=== PATIENT | female | born 1935 | race Caucasian/White ===

== ENCOUNTER 2019-10-26 18:14 | Emergency (ER) | payer MEDICARE ==
[~2019-10-26] VITALS: Ht 162.6 cm; Wt 100.2 kg
[2019-10-26 18:18] VITALS: Ht 162.6 cm; Wt 100.2 kg
[2019-10-26] MEDS ORDERED: GABAPENTIN100 MG (18:19)
[2019-10-26] MEDS ORDERED: GLUCOPHAGE500 MG (18:19)
[2019-10-26] MEDS ORDERED: LIPITOR40 MG (18:20)
[2019-10-26 18:40] LABS: BASOPHILS 0.5 % (0-2); EOSINOPHILS 0.4 % (0-7); HEMATOCRIT 35.5 % (36.0-48.0); HEMOGLOBIN 11.5 g/dL (12-16); IMMATURE GRANULOCYTES 0.4 % (0-5); LYMPHOCYTES 18.4 % (15-50); MCH 26.2 pg (26.0-34.0); MCHC 32.4 g/dL (31.0-37.0); MCV 80.9 fL (80.0-100.0); MEAN PLATELET VOLUME 11.3 fL (7.4-10.4); MONOCYTES 11.9 % (2-11); NEUTROPHILS 68.4 % (40-80); PLATELET COUNT 273 10x3/uL (130-400); RBC 4.39 10x6/uL (4.00-5.40); RDW 14.6 % (11.5-14.5); WBC 11.2 10x3/uL (4.8-10.8)
[2019-10-26 19:06] LABS: ANION GAP 15.3 mmol/L (8-16); CALCIUM 10.1 mg/dL (8.5-10.1); CARBON DIOXIDE 26.3 mmol/L (21.0-32.0); CREATININE - SERUM 1.4 mg/dL (0.6-1.3); POTASSIUM - SERUM 3.6 mmol/L (3.5-5.1)
[2019-10-26 19:11] LABS: APPEARANCE CLEAR (CLEAR); BILIRUBIN NEGATIVE (NEGATIVE); COLOR YELLOW (YELLOW); GLUCOSE NEGATIVE (NEGATIVE); KETONE NEGATIVE (NEGATIVE); NITRITE NEGATIVE (NEGATIVE); PROTEIN TRACE mg/dL (NEGATIVE); UROBILINOGEN NORMAL (NORMAL)
[2019-10-26 19:15] LABS: ALBUMIN 3.9 g/dL (3.4-5.0); BILIRUBIN - TOTAL 0.36 mg/dL (0.2-1.3); PROTEIN - SERUM 8.8 g/dL (6.4-8.2)
[2019-10-26] MEDS ORDERED: ZOFRAN ODT4 MG/UDTAB PO (21:23)
[2019-10-26 21:55] VITALS: BP 148/75
== END 2019-10-26 21:55 | disposition home or self-care (01) ==
LOC: D.ER 18:14
PROVIDERS: Emergency Medicine
DX: R11.2 Nausea with vomiting, unspecified (principal); R19.7 Diarrhea, unspecified; A08.4 Viral intestinal infection, unspecified; E11.9 Type 2 diabetes mellitus without complications; I10 Essential (primary) hypertension; E78.5 Hyperlipidemia, unspecified; Z79.84 Long term (current) use of oral hypoglycemic drugs

== ENCOUNTER 2020-07-20 15:35 | Inpatient (IN) | payer MEDICARE ==
[~2020-07-20] VITALS: Ht 162.6 cm; Wt 89.8 kg
[~2020-07-20 15:35] MED LIST: GABAPENTIN100 MG PO; GLUCOPHAGE500 MG; LIPITOR40 MG PO; ZOFRAN ODT4 MG/UDTAB PO
--- NOTE | 2020-07-20 19:00 | NUR ---
PT WAS A DIRECT ADMIT FROM [facility] ACCOMPANIED BY FAMILY. PT IS ALERT AND ORIENTED X4. CONTACT ISOLATION FOR ESBL URINE. NO IV OR O2 NOTED. VS STABLE. ORIENTED TO UNIT, ROOM, BATHROOM, FUNCTIONS OF REMOTE/CALL LIGHT. NO CONCERNS VOICED. CALL LIGHT WITHIN REACH. FALL PRECAUTIONS IN PLACE. CPOC
[2020-07-20 21:41] VITALS: BP 148/58
--- NOTE | 2020-07-21 01:10 | NUR ---
PT LYING IN BED ON RIGHT SIDE EYES CLOSED RESTING. RR EVEN AND UNLABORED. CALL LIGHT WITHIN REACH. FALL PRECAUTIONS IN PLACE. CPOC
[2020-07-21 02:22] VITALS: BP 148/58; BMI 34.1
[2020-07-21] MEDS ORDERED: COREG 3.1253.125 MG PO (02:47)
[2020-07-21] MEDS ORDERED: WELLBUTRIN XL150 M1 PO (02:47)
[2020-07-21] MEDS ORDERED: HYDROCHLOROTH12.5 M1 PO (02:48)
[2020-07-21] MEDS ORDERED: HYDROCODON-ACE1 EAC7 PO (02:49)
[2020-07-21] MEDS ORDERED: HUMULIN N100 U/ML SC (02:52)
[2020-07-21] MEDS ORDERED: HUMULIN R100 UNIT/1 SC (02:53)
[2020-07-21] MEDS ORDERED: CLARITIN5 MG/5 ML PO (02:55)
[2020-07-21] MEDS ORDERED: LEVOFLOXACIN500 MG PO (02:55)
[2020-07-21] MEDS ORDERED: NAMENDA10 MG PO (02:55)
[2020-07-21] MEDS ORDERED: NITROSTAT0.4 MG SL (02:56)
[2020-07-21] MEDS ORDERED: PROTONIX40 MG PO (02:57)
--- NOTE | 2020-07-21 06:33 | NUR ---
PT LYING IN BED ON LEFT SIDE EYES CLOSED RESTING. RR EVEN AND UNLABORED. CALL LIGHT WITHIN REACH. FALL PRECAUTIONS IN PLACE. CPOC
[2020-07-21 07:44] VITALS: BP 156/63
[2020-07-21 07:50] LABS: BASOPHILS 0.5 % (0-2); EOSINOPHILS 3.6 % (0-7); HEMATOCRIT 31.9 % (36.0-48.0); HEMOGLOBIN 10.3 g/dL (12-16); IMMATURE GRANULOCYTES 0.5 % (0-5); LYMPHOCYTES 20.3 % (15-50); MCH 27.5 pg (26.0-34.0); MCHC 32.3 g/dL (31.0-37.0); MCV 85.1 fL (80.0-100.0); MONOCYTES 14.2 % (2-11); NEUTROPHILS 60.9 % (40-80); RBC 3.75 10x6/uL (4.00-5.40); RDW 14.4 % (11.5-14.5); WBC 9.2 10x3/uL (4.8-10.8)
[2020-07-21 07:51] LABS: PLATELET COUNT 359 10x3/uL (130-400)
[2020-07-21 07:59] LABS: ANION GAP 12.5 mmol/L (8-16); CALCIUM 8.2 mg/dL (8.5-10.1); CARBON DIOXIDE 25.5 mmol/L (21.0-32.0); CREATININE - SERUM 1.3 mg/dL (0.6-1.3)
--- NOTE | 2020-07-21 09:25 | NUR ---
SHE IS ALERT TALKING, TOOK HER MEDICATIONS IN SOME APPLESAUSE. HER ABD HAS A SMALL AREA WITH BLACK TISSUE ON IT. THE CALL LIGHT IS WITHIN REACH.
[2020-07-21 13:15] VITALS: Ht 162.6 cm; Wt 89.8 kg
[2020-07-21 20:00] VITALS: BP 162/57
--- NOTE | 2020-07-21 20:00 | NUR ---
AWAKE AND ALERT. RESTING IN BED WITH RESPRIAITONS UNLABORED. IN CONTACT ISOLATION. ABDOMONIAL DRESSING DRY AND INTACT. C/O GENERALIZED PAIN. WILL MEDICATED PRN. SEE MAR. CALL LIGHT IN REACH.
--- NOTE | 2020-07-22 01:56 | NUR ---
SLEEPING WITH RESPIRATIONS UNLABORTED. NO DISTRESS NOTED. CALL LIGHT IN REACH. REMAINS IN CONTACT ISOLATION.
--- NOTE | 2020-07-22 03:30 | NUR ---
CONTINUES SLEEPING WITH NO DISTRESS NOTED.
--- NOTE | 2020-07-22 05:16 | NUR ---
ASSISTED UP TO BATHROOM AND BACK TO BED. HAS BEEN UP TO BATHROOM 5 TIMES THIS SHIFT. REMAINS IN CONTACT ISOLATION. CALL LIGHT IN REACH.
[2020-07-22 07:27] LABS: BASOPHILS 0.8 % (0-2); EOSINOPHILS 3.4 % (0-7); HEMOGLOBIN 10.3 g/dL (12-16); IMMATURE GRANULOCYTES 0.7 % (0-5); MCH 27.3 pg (26.0-34.0); MCHC 32.2 g/dL (31.0-37.0); MCV 84.9 fL (80.0-100.0); MEAN PLATELET VOLUME 10.6 fL (7.4-10.4); MONOCYTES 13.1 % (2-11); PLATELET COUNT 352 10x3/uL (130-400); RBC 3.77 10x6/uL (4.00-5.40); RDW 14.4 % (11.5-14.5)
[2020-07-22 07:29] LABS: ANION GAP 11.5 mmol/L (8-16); CALCIUM 8.3 mg/dL (8.5-10.1); CREATININE - SERUM 1.4 mg/dL (0.6-1.3); POTASSIUM - SERUM 3.5 mmol/L (3.5-5.1)
--- NOTE | 2020-07-22 07:45 | NUR ---
PT RESTING IN BED WITH EYES OPEN CALL LIGHT IN REACH WILL MONITER
[2020-07-22 08:29] VITALS: BP 166/66
--- NOTE | 2020-07-22 17:12 | RHP ---
PATIENT: CLEVE CRUZ MEDICAL RECORD: [id number] ACCOUNT: [id number] LOCATION:[id number] : 36 ADMISSION DATE: 07/20/20 REHABILITATION HISTORY AND PHYSICAL EXAMINATION POST ADMISSION PHYSICIAN EXAMINATION ADMITTING DIAGNOSIS: Debility. HISTORY OF PRESENT ILLNESS: The patient is an 84-year-old female patient admitted to hospital for nausea, vomiting and GI distress. She was started on antibiotic therapy secondary to abdominal cellulitis. She has cellulitis to her lower abdomen. She did improve on antibiotic therapy, but she was unable to tolerate. She was found to have a left-sided ulcer skin lesion to her lower pannus region. She was also found to have a UTI, which was consistent with VRE and Klebsiella pneumoniae. She has been receiving PT and OT and progressing slowly. She is on IV therapy for cellulitis and also for VRE and Klebsiella pneumoniae. The patient has been having some problems with her blood sugar being high and low. We are monitoring her adjustments as needed for her pain medication. She has got proximal muscle weakness, balance deficits, decreased activity tolerance, impaired mobility, decreased range of motion, decreased strength, gait disturbance, limited safety awareness, medical complexity and risks for falls, low endurance, unsteady gait and balance, fatigues easily, inability to care for herself and these are all barriers to her discharge home. She was living with her spouse and was independent with ADLs and mobility using a rolling walker. She is currently set up for mod assist for ADLs and mod assist for mobility. She and her family would like for her to return home after her stay here in the rehabilitation. COMORBIDITIES: Include abdominal wall/pannus cellulitis, GI distress, nausea and vomiting, UTI with ESBL Klebsiella pneumonia, leukocytosis, dementia, diabetes, and hypertension. PAST MEDICAL HISTORY: Significant for hypertension, hyperlipidemia, obstructive sleep apnea, dementia. PAST SURGICAL HISTORY: Includes cholecystectomy. She has had a heart catheterization with stents, total knee and carpal tunnel release. ALLERGIES: PENICILLIN. CURRENT MEDICATIONS: Include Michelle 60 mg b.i.d., Levaquin 500 mg daily, she is on hydrochlorothiazide 12.5 mg daily, Wellbutrin 150 mg daily, carvedilol 3.125 mg b.i.d. with meals, is on low-resistant sliding scale of insulin, Protonix 40 mg daily, Nitrostat 0.4 mg as needed, Namenda 10 mg b.i.d., she is on Humulin 28 units at bedtime of the NPH, she is on Caldwell 1 tab t.i.d. p.r.n., Neurontin 600 mg t.i.d., and Lipitor 20 mg at bedtime. HABITS: No alcohol or tobacco use. FAMILY HISTORY: Noncontributory. SOCIAL HISTORY: The patient hopes to return back home and get back to her prior level of functioning. REVIEW OF SYSTEMS: HISTORY AND PHYSICAL [id number] CLEVE CRUZ GENERAL: Does complain of weakness and fatigue. HEENT: Denies cold, cough, or congestion. CARDIOVASCULAR: Denies any chest pain. PHYSICAL EXAMINATION: VITAL SIGNS: Stable, afebrile. GENERAL: A somewhat obese female, in no acute distress upon exam. HEENT: Normocephalic and atraumatic. Mucosa moist. NECK: Supple. No lymphadenopathy. LUNGS: Clear in upper [place]. No wheezing or rales. HEART: Regular rate and rhythm. No murmurs, rubs or gallops. ABDOMEN: Soft, benign, and nondistended. She does have some healing cellulitis to her lower abdominal region. NEUROLOGIC: She does have proximal muscle weakness. LABORATORY DATA: White count is 9.2, H&H of 10.3 and 31.9 and platelet count is 359. Sodium 140, potassium 4.0, BUN and creatinine of 11 and 1.3 and blood sugars is noted to be 114. ASSESSMENT: An 84-year-old female patient admitted to rehab with a working diagnosis of debility secondary to recent cellulitis and urinary tract infection. The patient has potential to make improvement. We instituted the following multidisciplinary therapies including, but not limited to physical, occupational, respiratory, speech, nutritional services, prosthetics and orthotics. Given her complex medical condition and risks for more complications, rehabilitation services cannot be provided at a low level of care such as skilled nurse facility. PLAN: 1. Admit to [facility] for intensive inpatient therapy to include the following disciplines; A. Physical therapy to improve gait, all transfer skills and bed mobility to a modified independent level. B. Occupational therapy to improve activities of daily living. C. Case management to help with discharge planning and placement options. D. Nutrition to assist with nutritional needs. E. Rehabilitation nursing to assist in monitoring the patient's underlying medical conditions and to assist with any type of bowel or bladder management. 2. The patient's current medication and medical care will be continued. 3. Placed on standard fall precautions. 4. The patient's estimated length of stay is approximately 7-10 days. 5. We will finish her antibiotics and we will see again in the a.m. TRANSINT:[id number] Voice Confirmation ID: [id number] DOCUMENT ID: [id number] CHARLI notes whether there has been none or any medical/functional change since admission: - No change since prescreen. CHARLI attests patient continues to be appropriate for IRF: - Continues to be appropriate. HISTORY AND PHYSICAL [id number] CLEVE CRUZ,MIGUEL LEWIS MD at 1712 CC: [id number] DICTATION DATE: 07/21/20 1410 CLINICAL PHARMACOLOGIST: 07/21/20 1458 ADM IN [place] [id number] [place] [address]
--- NOTE | 2020-07-22 18:11 | NUR ---
PT UP IN WHEELCHAIR IN ROOM WITH FAMILY CALL LIGHT IN REACH WILL MONITER
--- NOTE | 2020-07-22 18:58 | NUR ---
RECEIVED PT SITTING UP IN W/C. ALERT AND ORIENTED X4. DENIES ANY NEEDS OR PAIN. NO SIGNS OF ACUTE DISTRESS NOTED. CALL LIGHT AND WATER WITHIN REACH. FALL PRECAUTIONS IN PLACE. CPOC
[2020-07-22 20:30] VITALS: BP 136/51
--- NOTE | 2020-07-23 01:11 | NUR ---
PT LYING IN BED EYES CLOSED RESTING QUIETLY. RR EVEN AND UNLABORED. CALL LIGHT WITHIN REACH. WILL CONTINUE TO MONITOR
--- NOTE | 2020-07-23 03:47 | NUR ---
PT LYING IN BED ON RIGHT SIDE EYES CLOSE RESTING. RR EVEN AND UNLABORED. CALL LIGHT WITHIN REACH. WILL CONTINUE TO MONITOR
[2020-07-23 08:51] VITALS: BP 124/35
--- NOTE | 2020-07-23 08:53 | NUR ---
SHE IS FORGETFUL AT TIMES, SHE IS TALKING, ALERT. HER ABD HAS SOME REDNESS WITH APPROX 2X2 BLACK AREA IN THE MIDDLE OF IT. DRESSING CHANGED TODAY. THE CALL LIGHT IS WITHIN REACH AND THE BED ALARM IS ON.
[2020-07-23 19:45] VITALS: BP 162/49
--- NOTE | 2020-07-23 19:45 | NUR ---
RECEIVED PT SITTING UP IN W/C. ALERT AND ORIENTED X4. ASSISTED TO RESTROOM AND BACK TO ROOM WITH MIN ASSIST. VS STABLE. SHIFT ASSESSMENT COMPLETE. CALL LIGHT AND WATER WITHIN REACH. FALL PRECAUTIONS IN PLACE. CPOC
--- NOTE | 2020-07-23 20:40 | NUR ---
PROVIDED HS BRIANNA CERNA PER PT REQUESTS BS 108
--- NOTE | 2020-07-23 21:40 | NUR ---
BS 125 PER PT FREESTYLE GEORGINA SENSOR
--- NOTE | 2020-07-24 01:26 | NUR ---
PT LYING IN BED ON RIGHT SIDE EYES CLOSED RESTING. RR EVEN AND UNLABORED. CALL LIGHT WITHIN REACH. FALL PRECAUTIONS IN PLACE. CPOC
--- NOTE | 2020-07-24 03:00 | NUR ---
CHECKED BS USING PT FREESTYLE GEORGINA MONITOR, SENSOR ON BACK RIGHT ARM. BS 65 PROVIDED PT WITH 4OZ APPLE JUICE, MYNOR CRACKERS, AND PEANUT BUTTER. PT ONLY C/O HEADACHE NO OTHER SYMPTOMS NOTED. WILL RECHECK BS.
--- NOTE | 2020-07-24 03:45 | NUR ---
BS 110 PER PERIYLE GEORGINA SENSOR
--- NOTE | 2020-07-24 06:38 | NUR ---
PT LYING IN BED ON LEFT SIDE EYES CLOSED RESTING. NO ACUTE CHANGES IN CONDTION NOTED THIS SHIFT. CALL LIGHT WITHIN REACH. CPOC
[2020-07-24 07:26] VITALS: BP 166/44
--- NOTE | 2020-07-24 07:28 | NUR ---
SHE IS AWAKE, WALKED TO THE BATHROOM WITH A WALKER WITH MY HELP. SHE IS SETTING UP IN THE WHEELCHAIR FOR BREAKFAST. TOOK HER MEDS IN APPLESAUCE. THE CALL LIGHT IS WITHIN REACH AND THE BED ALARM IS ON.
[2020-07-24 19:12] VITALS: BP 159/54
--- NOTE | 2020-07-24 19:12 | NUR ---
PT SITTING UP IN W/C ASSISTED TO RESTROOM SMALL VOID YELLOW AND CLEAR. ASSISTED TO BED WITH MIN ASSIST. DENIES ANY PAIN OR NEEDS. ALERT AND ORIENTED X4. NO SIGNS OF ACUTE DISTRESS NOTED. VS STABLE. SHIFT ASSESSMENT COMPLETE. CALL LIGHT AND WATER WITHIN REACH. FALL PRECAUTIONS IN PLACE. CPOC
--- NOTE | 2020-07-24 21:25 | NUR ---
REMOVED OLD DRESSING FROM ABDOMEN. SMALL AMOUNT BLOOD TINGED DRAINAGE. MEASURED WOUND 3CM X 3CM BLACK ESCHAR IN MIDDLE WITH REDDENED OUTTER EDGE. CLEANSED WITH WOUND CLEANSER, PAT DRY WITH 4X4, APPLIED ADAPTIC, COVERED WITH 6X6 BORDER GAUZE DRESSING. DATE, TIMED, INITIALED. PT TOLERATED WELL.
--- NOTE | 2020-07-25 01:44 | NUR ---
PT LYING IN BED ON LEFT SIDE EYES CLOSED RESTING. RR EVEN AND UNLABORED. CALL LIGHT WITHIN REACH. WILL CONTINUE TO MONITOR
--- NOTE | 2020-07-25 02:52 | NUR ---
ASSISTED PT TO RESTROOM AND BACK TO BED WITH MIN ASSIST USING WALKER. APPLIED BUTTPASTE TO BUTTOCKS AND DARÍO AREA. POSITIONED PT TO RIGHT SIDE USING PILLOWS. NO OTHER NEEDS VOICED. BS 93 PER [place] DEVICE, SENSOR ON BACK OF RIGHT ARM. WILL CONTINUE TO MONITOR
[2020-07-25 07:17] LABS: BASOPHILS 0.4 % (0-2); EOSINOPHILS 2.5 % (0-7); HEMATOCRIT 32.2 % (36.0-48.0); HEMOGLOBIN 10.5 g/dL (12-16); IMMATURE GRANULOCYTES 0.6 % (0-5); LYMPHOCYTES 21.2 % (15-50); MCH 27.7 pg (26.0-34.0); MCHC 32.6 g/dL (31.0-37.0); MEAN PLATELET VOLUME 10.8 fL (7.4-10.4); MONOCYTES 12.9 % (2-11); NEUTROPHILS 62.4 % (40-80); PLATELET COUNT 345 10x3/uL (130-400); RBC 3.79 10x6/uL (4.00-5.40); RDW 14.7 % (11.5-14.5); WBC 8.9 10x3/uL (4.8-10.8)
[2020-07-25 07:30] LABS: ANION GAP 13.2 mmol/L (8-16); CALCIUM 8.5 mg/dL (8.5-10.1); CARBON DIOXIDE 26.2 mmol/L (21.0-32.0); CREATININE - SERUM 1.3 mg/dL (0.6-1.3); POTASSIUM - SERUM 3.4 mmol/L (3.5-5.1)
[2020-07-25 08:00] VITALS: BP 164/69
--- NOTE | 2020-07-25 09:17 | NUR ---
SITTING IN WC. NO C/O PAIN. ASSISTED TO BR WITH MIN ASSIST WITH RW.
--- NOTE | 2020-07-25 11:06 | NUR ---
PARTICIPATING IN THERAPY AT THIS TIME,
--- NOTE | 2020-07-25 14:45 | NUR ---
IN THERAPY. NO CHANGE IN ASSESSMENT.
--- NOTE | 2020-07-25 19:32 | NUR ---
PT UP IN CHAIR WATCHING TV, ASSIST X2, NO IMMEDIATE NEEDS NOTED, RESPIRATIONS EVEN/UNLABORED, USES CALL/LIGHT, PRECAUTIONS IN PLACE, FLUIDS/CALL LIGHT WITHIN REACH
[2020-07-25 22:12] VITALS: BP 145/87
--- NOTE | 2020-07-26 02:38 | NUR ---
PT ASLEEP, AROUSES EASILY TO VOICE, NO IMMEDIATE NEEDS NOTED, FALL PRECAUTIONS IN PLACE, RESPIRATIONS EVEN/UNLABORED, FLUIDS/CALL LIGHT WITHIN REACH
--- NOTE | 2020-07-26 05:32 | NUR ---
TOILETED PT, PT C/O ITCHING AND BURNING IN VAGINIAL AREA, WASHED W/SOAP AND WATER, INSIDE LABIA RED AND IRRITATED, LEAVING NOTE FOR DR. WONG AND PASSING INFO ON TO DAY SHIFT FOR 'S ORDERS. PT HAS BEEN ON ABX FOR ESBL IN URINE, POSSIBLE UTI NOTED
[2020-07-26 08:00] VITALS: BP 170/56
--- NOTE | 2020-07-26 08:00 | NUR ---
PT RESTING IN BED WITH EYES OPEN CALL LIGHT IN REACH WILL MONITER
--- NOTE | 2020-07-26 11:01 | NUR ---
Nutrition Follow-up: Diet: Regular Vegetarian PO intake: ~98% average x last 9 meals Last BM: 07/23/20. Wt: 198# (07/21/20), no new wt Meds noted: micro-k, HCTZ, SSI. Labs noted: K 3.4(L), GFR 41(L). Skin: unstageable wound/cellulitis to lower abdomen Recommend continue current diet. RD following.
--- NOTE | 2020-07-26 18:16 | NUR ---
PT UP IN WHEELCHAIR IN ROOM WITH AND DAUGHTER IN LAW SHE IS CHANGING BLOOD SUGAR READING DEVICE IN ARM
--- NOTE | 2020-07-26 19:37 | NUR ---
PT UP TO TOILET, NO IMMEDIATE NEEDS NOTED, FALL PRECAUTIONS IN PLACE PLACE, RESPIRATIONS EVEN/UNLABORED, FLUIDS/CALL LIGHT WITHIN REACH
[2020-07-26 21:12] VITALS: BP 148/37
--- NOTE | 2020-07-27 01:15 | NUR ---
PT IN BED ASLEEP,NO IMMEDIATE NEEDS NOTED, FALL PRECAUTIONS IN PLACE PLACE, RESPIRATIONS EVEN/UNLABORED, FLUIDS/CALL LIGHT WITHIN REACH
[2020-07-27 06:20] LABS: BASOPHILS 0.7 % (0-2); HEMATOCRIT 31.4 % (36.0-48.0); HEMOGLOBIN 10.3 g/dL (12-16); IMMATURE GRANULOCYTES 0.5 % (0-5); LYMPHOCYTES 23.1 % (15-50); MCH 27.9 pg (26.0-34.0); MCHC 32.8 g/dL (31.0-37.0); MCV 85.1 fL (80.0-100.0); MEAN PLATELET VOLUME 10.9 fL (7.4-10.4); MONOCYTES 14.8 % (2-11); NEUTROPHILS 57.9 % (40-80); PLATELET COUNT 291 10x3/uL (130-400); RBC 3.69 10x6/uL (4.00-5.40); RDW 14.6 % (11.5-14.5); WBC 9.1 10x3/uL (4.8-10.8)
[2020-07-27 06:24] LABS: ANION GAP 12.1 mmol/L (8-16); CALCIUM 8.8 mg/dL (8.5-10.1); CARBON DIOXIDE 25.9 mmol/L (21.0-32.0); CREATININE - SERUM 1.3 mg/dL (0.6-1.3)
[2020-07-27 08:00] VITALS: BP 143/62
--- NOTE | 2020-07-27 12:00 | NUR ---
I have reviewed this patient and I concur with the Shift Assessment completed by the Licensed Practical Nurse today this shift.
--- NOTE | 2020-07-27 15:27 | NUR ---
CARE TEAM MEETING: PATIENT BARRY STINSON ATTENDED THE MEETING. HER QUESTIONS AND CONCERNS WERE ADDRESSED. PATIENTS TENATIVE DC DATE IS 08/02/20. HER PCP IS DR. CHRISTIANSON AND WILL NEED AN APPOINTMENT AT DC DATE. WILL CONTINUE TO FOLLOW WITH PATIENT.
--- NOTE | 2020-07-27 18:22 | NUR ---
PT RESTING IN BED WITH EYES OPEN CALL LIGHT IN REACH WILL MONITER
--- NOTE | 2020-07-27 19:31 | NUR ---
PT UP IN CHAIR WATCHING TV, NO IMMEDIATE NEEDS, NOTED, RESPIRATIONS EVEN/UNLABORED, FALL PRECAUTIONS IN PLACE, FLUIDS/CALL LIGHT WITHIN REACH
[2020-07-27 20:47] VITALS: BP 158/41
--- NOTE | 2020-07-28 02:52 | NUR ---
AFTER TOILETING PT, DRSG CHANGED, WOUND BED 2.7CM X 3.5CM BEEFY RED WITH ESCAR ATTACHED TO RT SIDE OF WOUND BED BEGINNING TO SLOUGH OFF, CLEANED WITH WOUND ELEVATOR CONSTRUCTOR SUPERVISOR, REDRESSED WITH ADAPTIC/4X4 GAUZE/ BORDERED ISLAND DRSG. INITIALED/TIMED/DATED, PT TOLERATED DRSG CHANGE WELL, PLACED BED IN [place] POSITION PT COULD NOT PULL SELF UP IN THE BED, THIS NURSE MOVED TO TOP OF BED TOOK HOLD OF DRAW SHEET AND PULLED PT UP IN BED, REPOSITIONED PT, ASKED IF PT NEEDED ANYTHING ELSE AND LEFT THE ROOM
[2020-07-28 08:00] VITALS: BP 127/58
--- NOTE | 2020-07-28 19:28 | NUR ---
PT UP IN CHAIR, NO IMMEDIATE NEEDS NOTED, RESPIRATIONS EVEN/UNLABORED, SAFETY PRECAUTIONS IN PLACE, FLUIDS/CALL LIGHT WITHIN REACH,
[2020-07-28 19:49] VITALS: BP 174/62
--- NOTE | 2020-07-29 01:12 | NUR ---
PT ASLEEP, AROUSES EASILY TO VOICE, RESPIRATIONS EVEN/UNLABORED, SAFETY PRECAUTIONS IN PLACE, NO IMMEDIATE NEEDS NOTED, FLUIDS/CALL LIGHT WITHIN REACH
[2020-07-29 07:50] VITALS: BP 153/61
[2020-07-29 08:02] LABS: BASOPHILS 0.6 % (0-2); EOSINOPHILS 4.4 % (0-7); HEMATOCRIT 32.1 % (36.0-48.0); HEMOGLOBIN 10.4 g/dL (12-16); IMMATURE GRANULOCYTES 0.3 % (0-5); LYMPHOCYTES 24.5 % (15-50); MCH 27.6 pg (26.0-34.0); MCHC 32.4 g/dL (31.0-37.0); MCV 85.1 fL (80.0-100.0); MEAN PLATELET VOLUME 11.4 fL (7.4-10.4); MONOCYTES 12.5 % (2-11); NEUTROPHILS 57.7 % (40-80); PLATELET COUNT 282 10x3/uL (130-400); RBC 3.77 10x6/uL (4.00-5.40); RDW 14.5 % (11.5-14.5); WBC 7.8 10x3/uL (4.8-10.8)
[2020-07-29 08:16] LABS: CALCIUM 8.8 mg/dL (8.5-10.1); CARBON DIOXIDE 27.1 mmol/L (21.0-32.0); CREATININE - SERUM 1.2 mg/dL (0.6-1.3); POTASSIUM - SERUM 4.1 mmol/L (3.5-5.1)
--- NOTE | 2020-07-29 08:27 | NUR ---
SHE IS ALERT, TALKING. SHE TOOK HER MEDICATIONS IN APPLESAUCE. THE CALL LIGHT IS WITHIN REACH.
--- NOTE | 2020-07-29 20:00 | NUR ---
PATIENT RECEIVED SITTING UP IN BED. ASSESSMENT & VITAL SIGNS DONE. NO C/O PAIN OR DISTRESS. PATIENT BUTTOCKS ON PILLOW. BED LOW. CALL LIGHT WITHIN REACH. WILL CONTINUE TO MONITOR.
[2020-07-29 21:00] VITALS: BP 181/66
--- NOTE | 2020-07-29 22:00 | NUR ---
PATIENT USED CALL LIGHT WITHIN REACH. PATIENT MINIMAL ASSIST INTO & OUT OF WHEELCHAIR. PATIENT TOLIETED. VOID ONLY. RETURNED TO LOW BED. CALL LIGHT WITHIN REACH. WILL CONTINUE TO MONITOR.
--- NOTE | 2020-07-29 23:02 | NUR ---
I have reviewed this patient and I concur with the Shift Assessment completed by the Licensed Practical Nurse today this shift.
--- NOTE | 2020-07-30 01:07 | NUR ---
PATIENT EYES CLOSED. RESPIRATIONS 18 & EVEN. BED LOW. CALL LIGHT WITHIN REACH. WILL CONTINUE TO MONITOR.
--- NOTE | 2020-07-30 03:53 | NUR ---
PATIENT MINIMAL ASSIST USING ROLLING WALKER TO BATHROOM. VOID ONLY. RETURNED TO BED. BLOOD SUGAR READING 88. PEANUT BUTTER & MYNOR CRACKERS WITH APPLE JUICE GIVEN. BED LOW. CALL LIGHT WITHIN REACH. WILL CONTINUE TO MONITOR.
[2020-07-30 07:23] VITALS: BP 152/56
--- NOTE | 2020-07-30 11:29 | NUR ---
PT RESTING IN BED WITH EYES OPEN CALL LIGHT IN REACH NO PROBLEMS WILL MONITER
--- NOTE | 2020-07-30 18:21 | NUR ---
PT RESTING IN BED WITH EYES OPEN CALL LIGHT IN REACH WILL MONITER
--- NOTE | 2020-07-30 19:56 | NUR ---
PATIENT RECEIVED SITTING UP IN WHEELCHAIR. ASSESSMENT & VITAL SIGNS DONE. NO C/O PAIN OR DISTRESS. CALL LIGHT WITHIN REACH. WILL CONTINUE TO MONITOR.
[2020-07-30 20:00] VITALS: BP 127/76
--- NOTE | 2020-07-31 03:07 | NUR ---
I have reviewed this patient and I concur with the Shift Assessment completed by the Licensed Practical Nurse today this shift.
--- NOTE | 2020-07-31 04:07 | NUR ---
PATIENT AWAKE ON ROUNDS. MINIMAL ASSIST TO BATHROOM. VOID ONLY. RETURNED TO LOW BED. CALL LIGHT WITHIN REACH. WILL CONTINUE TO MONITOR.
--- NOTE | 2020-07-31 07:20 | NUR ---
PT RESTING IN BED WITH EYES OPEN CALL LIGHT IN REACH WILL MONITER
[2020-07-31 07:44] VITALS: BP 134/84
--- NOTE | 2020-07-31 17:30 | NUR ---
PT RESTING IN WHEELCHAIR IN ROOM EATING SUPPER AT BEDSIDE CALL LIGHT IN REACH WILL MONITER
[2020-07-31 19:51] VITALS: BP 174/59
--- NOTE | 2020-07-31 20:10 | NUR ---
PATIENT USED CALL LIGHT FOR ASSIST. PATIENT STANDBY ASSIST INTO & OUT OF BED & WHEELCHAIR. PATIENT TOILETED & HAD VOID & BM. PATIENT RETURNED TO LOW BED. CALL LIGHT WITHIN REACH. WILL CONTINUE TO MONITOR.
--- NOTE | 2020-07-31 21:00 | NUR ---
PATIENT USED CALL LIGHT FOR ASSIST TO BATHROOM. VOID & BM. PATIENT RETURNED TO BED IN WHEELCHAIR TO LOW BED. STANDBY ASSIT INTO BED. LEGS ASSISTED INTO BED. CALL LIGHT WITHIN REACH. WILL CONTINUE TO MONITOR.
--- NOTE | 2020-07-31 22:13 | NUR ---
PATIENT AREA ON LOWER ABDOMEN IS BEEFY RED. NO ODOR NOTED. NEW ADAPTIC APPLIED TO WOUND BED. COVERED WITH DRESSING. PATIENT TOLERATED IT WELL. BED LOW. CALL LIGHT WITHIN REACH. WILL CONTINUE TO MONITOR.
--- NOTE | 2020-08-01 03:32 | NUR ---
I have reviewed this patient and I concur with the Shift Assessment completed by the Licensed Practical Nurse today this shift.
--- NOTE | 2020-08-01 04:00 | NUR ---
PATIENT USED CALL LIGHT FOR ASSIST. MINIMAL ASSIST INTO & OUT OF BED. PATIENT HAD INCONTINENT URINE ON PAD IN BED. PATIENT TOILETED & HAD VOID IN COMMODE. PATIENT RETURNED TO LOW BED. CALL LIGHT WITHIN REACH. WILL CONTINUE TO MONITOR.
[2020-08-01 07:09] LABS: BASOPHILS 0.8 % (0-2); EOSINOPHILS 3.8 % (0-7); HEMOGLOBIN 10.4 g/dL (12-16); IMMATURE GRANULOCYTES 0.3 % (0-5); MCH 27.9 pg (26.0-34.0); MCHC 32.5 g/dL (31.0-37.0); MCV 85.8 fL (80.0-100.0); MEAN PLATELET VOLUME 10.8 fL (7.4-10.4); MONOCYTES 13.6 % (2-11); NEUTROPHILS 54.5 % (40-80); PLATELET COUNT 251 10x3/uL (130-400); RBC 3.73 10x6/uL (4.00-5.40); RDW 14.4 % (11.5-14.5); WBC 7.9 10x3/uL (4.8-10.8)
[2020-08-01 07:19] LABS: ANION GAP 10.1 mmol/L (8-16); CALCIUM 8.6 mg/dL (8.5-10.1); CARBON DIOXIDE 28.9 mmol/L (21.0-32.0); CREATININE - SERUM 1.3 mg/dL (0.6-1.3)
[2020-08-01 08:00] VITALS: BP 153/69
--- NOTE | 2020-08-01 08:11 | NUR ---
PATIENT IS ALERT/ORIENT. CALL LIGHT WITHIN REACH. VOICES NO NEEDS AT THIS TIME. CONTINUES IN CONTACT ISOLATION.
--- NOTE | 2020-08-01 10:45 | NUR ---
Nutrition Follow-up: Diet: Diabetic Vegetarian PO intake: 100% x last 3 meals Last BM: 08/01/20 x 2. Wt: 198# (07/21/20) Meds noted: micro-K, HCTZ, SSI. Labs noted: GFR 41(L), Glu 107(H) Recommend continue current diet. RD following.
--- NOTE | 2020-08-01 11:07 | NUR ---
PATIENT IN REHAB ROOM. WORKING WITH PHYSICAL THERAPIST. DENIES ANY PAIN/DISC AT THIS TIME
--- NOTE | 2020-08-01 17:45 | NUR ---
PATIENT SITTING UP IN CHAIR AT BEDSIDE. VOICES NO NEEDS AT THIS TIME.
--- NOTE | 2020-08-01 18:43 | NUR ---
PATIENT BROUGHT BACK FROM DIALYSIS CLINIC BY STAFF
--- NOTE | 2020-08-01 19:35 | NUR ---
PT UP IN CHAIR, NO NEEDS NOTED, SAFETY PRECAUTIONS IN PLACE,RESPIRATIONS EVEN/UNLABORED, FLUIDS/CALL LIGHT WITHIN REACH
[2020-08-01 20:00] VITALS: BP 168/57
[2020-08-02 08:10] VITALS: BP 145/45
--- NOTE | 2020-08-02 08:46 | NUR ---
SHE IS ALERT TALKING. TOOK HER MEDICATIONS IN APPLESAUCE. CHANGED THE ABD DRESSING, IT IS RED WITH SMALL AMOUNT OF DRAINAGE. THE CALL LIGHT IS WITHIN REACH.
[2020-08-02] MEDS ORDERED: HYDROCODON-ACE1 EAC7 PO (10:29)
--- NOTE | 2020-08-02 10:45 | NUR ---
PATIENT DISCHARGING TO THE [facility] AND [facility] VIA [facility]ILITY [facility]. NO HOME HEALTH OR DME NEEDED AT THIS TIME. DAVID SIGNED, IMM SERVED AND EXPLAINED ONE GIVEN TO PATIENT AND ONE FILED IN CHART. AN APPOINTMENT WITH DR.DAVID CHRISTIANSON WILL BE MADE AT TIME OF DC FROM THE FACILITY. NO COMPARE DATA REVIEWED FAMILY HAS CHOSEN THE [facility]. DC INSTRUCTIONS FAXED TO PCP, SNF AND REVIEWED WITH PATIENT AND DAUGHTER N LAW PER PRIMARY NURSE.
--- NOTE | 2020-08-02 13:10 | NUR ---
REPORT CALLED TO JHOAN DANIEL AT THE [facility]. PAPERWORK GONE OVER WITH AND SIGNED.
== END 2020-08-02 14:37 | DRG 948 ==
LOC: D.REHAB 15:35
PROVIDERS: ADMIT Emergency Medicine; ATTEND Emergency Medicine
DX: R53.81 Other malaise (principal); L03.311 Cellulitis of abdominal wall; N39.0 Urinary tract infection, site not specified; N17.9 Acute kidney failure, unspecified; R11.2 Nausea with vomiting, unspecified; B96.1 Klebsiella pneumoniae [K. pneumoniae] as the cause of diseases classified elsewhere; D72.829 Elevated white blood cell count, unspecified; F03.90 Unspecified dementia, unspecified severity, without behavioral disturbance, psychotic disturbance, mood disturbance, and anxiety; E11.9 Type 2 diabetes mellitus without complications; I10 Essential (primary) hypertension; R26.81 Unsteadiness on feet; M62.81 Muscle weakness (generalized); R53.83 Other fatigue; R19.7 Diarrhea, unspecified